=== PATIENT | female | born 1945 | race Caucasian/White ===

== ENCOUNTER → 2019-05-13 19:33 | Outpatient (CLI) | payer MEDICARE, BC ==
[2014-11-26 22:01] VITALS: BMI 22.3
[~2019-05-13 19:33] MED LIST: BAYER CHEWABLE81 MG PO; EFFIENT10 MG PO; ELAVIL10 MG PO; ESTRACE1 MG PO; K-TAB10 MEQ PO; LASIX20 MG PO; LOPRESSOR25 MG PO; MULTIPLE VITAMI1 TA1 PO; PLAVIX75 MG PO; PRAVACHOL40 MG PO
== END | disposition home or self-care (01) ==
LOC: D.LABREF 19:33
PROVIDERS: ATTEND Family Medicine
DX: G72.81 Critical illness myopathy (principal); Z48.812 Encounter for surgical aftercare following surgery on the circulatory system; I25.10 Atherosclerotic heart disease of native coronary artery without angina pectoris; Z95.1 Presence of aortocoronary bypass graft